=== PATIENT | female | born 1955 | race Caucasian/White ===

== ENCOUNTER 2018-09-12 05:50 | Outpatient (CLI) | payer BC ==
[~2018-09-12] VITALS: Ht 160 cm; Wt 67.6 kg
[~2018-09-12 05:50] MED LIST: BPR75T PO; BUPR150T14 PO; FLUO10CA19 PO; FLUO20CA25 PO; HYDR1TAB8 OP
[2018-09-12] MEDS ORDERED: DOXA4TAB2 PO (09:43)
[2018-09-12] MEDS ORDERED: MELO15TA14 PO (09:43)
[2018-09-12] MEDS ORDERED: FLUO40CA PO (09:43)
[2018-09-13] MEDS ORDERED: HYOS0.1283 SL (11:19)
== END 2018-09-12 09:45 | disposition home or self-care (01) ==
LOC: PREOP 05:50
PROVIDERS: ATTEND Internal Medicine
DX: Z01.818 Encounter for other preprocedural examination (principal)

== ENCOUNTER 2018-09-13 07:40 | Day surgery (SDC) | payer BC, OTHER ==
--- NOTE | 2018-09-11 19:17 | HISTORY AND PHYSICAL ---
DATE OF SERVICE: COLONOSCOPY HISTORY AND PHYSICAL HISTORY OF PRESENT ILLNESS: The patient is a 62-year-old white female who I initially called in the office on 07/25/2018, reporting lower quadrant abdominal pain compatible with previous episodes of diverticulitis. She was running fever, but denying any bowel habit change. She was out of town, so she was given a week's course of cephalexin 500 mg q.i.d. and reports had resolution. She has had 2 other episodes of bilateral lower quadrant discomfort worse in the left side without fever that lasted for several days for which she took Tylenol and noticed stools were a little bit looser, but without overt diarrhea, melena or bright red blood per rectum. She last underwent colonoscopy a little over 5 years ago in 07/2013, at which time she was noted to have moderate diverticular disease without evidence for acute diverticulitis. She had 2 hyperplastic polyps removed, one from the rectosigmoid junction and the other one from the distal sigmoid colon with no evidence for adenomas. She is not aware of any family history for colon cancer. Her weight has been stable, but she does feel fatigued when she has the abdominal pain. For this reason, she is being set up for diagnostic colonoscopy. PAST MEDICAL HISTORY: Significant for depression and hypertension with no known history of vascular disease. PHYSICAL EXAMINATION: GENERAL: Reveals a pleasant white female little anxious, but did not appear to be in acute distress. VITAL SIGNS: Weight is 149.2 pounds, stable. Blood pressure is 134/80, heart rate 76 and regular. HEENT: Unremarkable. Sclerae nonicteric. She has a Mallampati class 3 oropharyngeal configuration. CHEST: Clear to auscultation. CARDIOVASCULAR: Revealed a regular rate and rhythm without murmur, S3 or S4. ABDOMEN: Revealed some mild left lower quadrant discomfort to palpation without rebound or guarding. No mass or organomegaly was noted. No distention is appreciated. No bruits are noted and bowel sounds are present. EXTREMITIES: Reveal no cyanosis, clubbing or edema. ASSESSMENT AND PLAN: For further evaluation of recurrent abdominal pain and known diverticulosis, the patient is being set up for surveillance colonoscopy. She did have an irritable bowel type response to her procedure and remember discomfort with that, so this will be done under anesthesia. The patient was seen in the office on 09/11/2018 and is being set up for 09/13/2018. Prep instructions with Ojeda-prep kit were given and questions were answered. With review of her medical record and dictation, a little over 25 minutes care time has been spent. Job ID: [id number] DocumentID: [id number] Dictated Date: 09/11/2018 18:26:50 Parts Representative Date: 09/11/2018 19:16:44 Dictated By: ORA ROGERS MD
[~2018-09-13] VITALS: Ht 160 cm; Wt 67.6 kg
[~2018-09-13 07:40] MED LIST changes: +DOXA4TAB2 PO; +FLUO40CA PO; +MELO15TA14 PO
[2018-09-13] MEDS ORDERED: LACTATED RINGERS 1,000 ML IV STA (07:57)
[2018-09-13] MEDS ORDERED: LACTATED RINGERS 1,000 ML IV ONE (08:00)
[2018-09-13] MEDS ORDERED: LIDOCAINE JELLY 2% 6 ML SYRINGE MM PRN (08:00)
[2018-09-13 08:15] VITALS: BP 140/82
[2018-09-13] MEDS ORDERED: LIDOCAINE JELLY 2% 6 ML SYRINGE ONE (08:29)
[2018-09-13] MEDS ORDERED: PROPOFOL INJECTION 50 ML IV ONE (08:32)
[2018-09-13] MEDS ORDERED: MIDAZOLAM 2 MG/2 ML (VERSED) VIAL ONE (08:32)
[2018-09-13] MEDS ORDERED: proPOfol 200 MG/20 ML (DIPRIVAN) VIAL IV ONE (09:09)
--- NOTE | 2018-09-13 09:25 | Pre-Op Note & Conscious Sedat ---
Pre-Operative Progress Note H&P Reviewed The H&P was reviewed, patient examined and no changes noted. Date H&P Reviewed: September 13, 2018 Time H&P Reviewed: 07:55 Conscious Sedation Pre-Proced ASA Score 2 For ASA 3 and 4: Consider anesthesia and medical clearance. Also, for patients with a history of failed moderate sedation consider anesthesia. Airway Lungs Heart ASA score ASA 1: a normal healthy patient ASA 2: a patient with a mild systemic disease (mid diabetes, controlled hypertension, obesity ASA 3: a patient with a severe systemic disease that limits activity (angina, COPD, prior Myocardial infarction) ASA 4: a patient with an incapacitating disease that is a constant threat to life (CHF, renal failure) ASA 5: a moribund patient not expected to survive 24 hrs. (ruptured aneurysm) ASA 6: a declared brain- patient whose organs are being harvested. For emergent operations, add the letter E after the classification Mallampati Classification Grade 2 Sedation Plan Analgesia, Amnesia, Plan communicated to team members, Discussed options with patient/fam, Discussed risks with patient/fam The patient is an appropriate candidate to undergo the planned procedure, sedation, and anesthesia. The patient immediately re-assessed prior to indication. ORA ROGERS MD September 13, 2018 09:25
[2018-09-13 09:40] VITALS: BP 144/81
[2018-09-13 10:15] VITALS: BP 143/92
[2018-09-13 10:25] VITALS: BP 143/92
--- NOTE | 2018-09-13 11:04 | Anesthesia-General Post-Op ---
MAC Patient Condition Mental Status/LOC: Same as Preop Cardiovascular: Satisfactory Nausea/Vomiting: Absent Respiratory: Satisfactory Pain: Controlled Complications: Absent Post Op Complications Complications None Follow Up Care/Instructions Patient Instructions None needed. Anesthesiology Discharge Order Discharge Order Patient is doing well, no complaints, stable vital signs, no apparent adverse anesthesia problems. No complications reported per nursing. HODAN CAAL CRNA September 13, 2018 11:04
[2018-09-13] MEDS ORDERED: HYOS0.1283 SL (11:19)
--- NOTE | 2018-09-13 14:17 | OPERATIVE REPORT ---
DATE OF SERVICE: 09/13/2018 COLONOSCOPY SUMMARY PRIMARY CARE PHYSICIAN: Ora Rogers MD INDICATION FOR THE PROCEDURE: Bilateral lower quadrant abdominal pain, past history of colon polyps. PROCEDURE IN DETAIL: The patient was placed in the left lateral decubitus position. Prior to undergoing colonoscopy, digital rectal evaluation was performed. Anal sphincter tone was normal. There were no abnormalities on digital inspection of the anal canal or distal rectal vault. The colonoscope was then inserted into the rectum and under direct visualization advanced to the cecum. The cecum was identified by identification of the ileocecal valve and cecal strap. Photographic documentation was obtained. Careful inspection was made as the colonoscope was withdrawn. Because of an irritable bowel type response with abdominal pain, procedure was done under Diprivan anesthesia. FINDINGS: There is no evidence for internal or external hemorrhoids and the rectum was unremarkable. There is a significant haustral hypertrophy involving the sigmoid colon with moderate number of small to medium size diverticulum without evidence for acute inflammatory change to suggest diverticulitis. Present in the mid sigmoid colon was a diminutive 3 to 4 mm sessile polyp with hyperplastic features. It was biopsied and ablated and submitted for histopathology with minimal blood loss. A similar polyp slightly smaller 2 to 3 mm was noted in the distal transverse colon and was biopsied and ablated with no blood loss. The splenic flexure, remainder of the transverse colon, hepatic flexure, ascending colon and cecum were unremarkable. ASSESSMENT: 1. Moderate diverticular disease confined to the sigmoid colon was present with significant haustral hypertrophy, but without endoscopic findings to suggest acute diverticulitis. 2. Two diminutive polyps removed, one from the sigmoid colon, one from the distal transverse colon via hot forceps as noted above. The patient was reassured by today's findings. We will have her try Levsin SL the next time she has abdominal pain and if she is having associated fever, she is to call for evaluation for consideration for antibiotics. Job ID: [id number] DocumentID: [id number] Dictated Date: 09/13/2018 09:43:[address] Date: 09/13/2018 14:15:17 Dictated By: ORA ROGERS MD [facility]
== END 2018-09-13 10:25 | disposition home or self-care (01) ==
LOC: ENDO 07:40
PROVIDERS: ATTEND Internal Medicine
DX: K63.5 Polyp of colon (principal); K57.30 Diverticulosis of large intestine without perforation or abscess without bleeding; I10 Essential (primary) hypertension; F32.9 Major depressive disorder, single episode, unspecified

== ENCOUNTER 2018-12-24 09:50 | Emergency (ER) | payer BC ==
[~2018-12-24 09:50] MED LIST changes: +HYOS0.1283 SL
--- NOTE | 2018-12-24 10:35 | ED General ---
General Chief Complaint: General Problems/Pain Stated Complaint: FEVER Nursing Triage Note: TO ED PER W/C REPORTS HAS NOT FELT WELL SINCE YESERDAY RICARDO.C/O FEVER,BODY ACHES VOMITED X1 AT 4AM TODAY. Nursing Sepsis Screen: No Definite Risk Source of Information: Patient Exam Limitations: No Limitations History of Present Illness Date Seen by Provider: Dec 24, 2018 Time Seen by Provider: 10:33 Initial Comments To ER with feeling poorly since yesterday when she got home from work. When she went to work in the morning she felt fine. Yesterday evening she developed fever up to a maximum of 102, generalized body aches, vomited once this morning, has had diarrhea and some suprapubic abdominal pain. She suspects she may have a diverticulitis flareup. Timing/Duration: 12-24 Hours Severity: Moderate Associated Systoms: Fever/Chills, Nausea/Vomiting, Weakness Allergies and Home Medications Allergies Coded Allergies: No Known Drug Allergies (Unverified , 12/26/11) Home Medications Amoxicillin/Potassium Clav 1 Each Tablet, 1 EACH PO BID Prescribed by: GUILLAUME MURPHY on 12/24/18 1217 Baloxavir Marboxil 40 Mg Tablet, 40 MG PO ONCE Prescribed by: GUILLAUME MURPHY on 12/24/18 1052 Bupropion HCl 150 Mg Tablet.er, 150 MG PO TID, (Reported) Doxazosin Mesylate 4 Mg Tablet, 4 MG PO DAILY, (Reported) Fluoxetine HCl 40 Mg Capsule, 40 MG PO DAILY, (Reported) Hyoscyamine Sulfate 0.125 Mg Tab.subl, 0.125 MG SL Q4H Prescribed by: ORA ROGERS on 09/13/18 1119 Meloxicam 15 Mg Tablet, 15 MG PO DAILY, (Reported) Ondansetron 8 Mg Tab.rapdis, 8 MG PO Q6H PRN for NAUSEA/VOMITING Prescribed by: GUILLAUME MURPHY on 12/24/18 1217 Patient Home Medication List Home Medication List Reviewed: Yes Review of Systems Review of Systems Constitutional: see HPI, chills, fever, malaise, weakness EENTM: see HPI Respiratory: no symptoms reported Cardiovascular: no symptoms reported Genitourinary: no symptoms reported Musculoskeletal: see HPI Skin: no symptoms reported Psychiatric/Neurological: No Symptoms Reported Hematologic/Lymphatic: No Symptoms Reported Past Ofxdhyr-Ugiqlu-Brbicy Hx Patient Social History Alcohol Use: Denies Use Recreational Drug Use: No Smoking Status: Never a Smoker Type Used: Cigarettes Former Smoker, Quit: Apr 14, 2017 Recent Foreign Travel: No Contact w/Someone Who Travel: No Recent Infectious Disease Expo: No Recent Hopitalizations: No Immunizations Up To Date Date of Pneumonia Vaccine: Mar 24, 2009 Date of Influenza Vaccine: Jan 28, 2015 Seasonal Allergies Seasonal Allergies: No Past Medical History Surgeries: Yes (bilat hip replacement, plate left foot, left wrist) Orthopedic Respiratory: No Cardiac: Yes Hypertension Neurological: No Reproductive Disorders: No Genitourinary: No Gastrointestinal: No Polyps Musculoskeletal: Yes Osteoporosis Endocrine: No HEENT: No Cancer: No Psychosocial: Yes Anxiety, Depression Integumentary: No Blood Disorders: No Family Medical History Patient reports no known family medical history. No Pertinent Family Hx Physical Exam Vital Signs Vital Signs - First Documented 12/24/18 09:52 Temp 37.0 Pulse 60 Resp 18 B/P (MAP) 100/62 Pulse Ox 78 Capillary Refill : Less Than 3 Seconds Height, Weight, BMI Height: 5'3.00" Weight: 149lbs. 0.0oz. [id number]; 26.4 BMI Method:Estimated General Appearance: No Apparent Distress, WD/WN Eyes: Bilateral Eye Normal Inspection, Bilateral Eye PERRL, Bilateral Eye EOMI HEENT: PERRL/EOMI Neck: Full Range of Motion, Normal Inspection Respiratory: No Accessory Muscle Use, No Respiratory Distress Cardiovascular: Regular Rate, Rhythm, No Murmur Gastrointestinal: Normal Bowel Sounds, Soft, Tenderness (suprapubic) Extremity: Normal Capillary Refill, Normal Inspection Neurologic/Psychiatric: Alert, Oriented x3, Other (flat affect) Skin: Normal Color, Warm/Dry Progress/Results/Core Measures Suspected Sepsis Recent Fever Within 48 Hours: No Infection Criteria Present: Suspected New Infection New/Unexplained Altered Menta: No Sepsis Screen: No Definite Risk SIRS Temperature: Pulse: 60 Respiratory Rate: 18 Laboratory Tests 12/24/18 10:30: White Blood Count 10.3 Blood Pressure 100 /62 Mean: 75 Laboratory Tests 12/24/18 10:30: Creatinine 0.77, Platelet Count 242, Total Bilirubin 0.8 Results/Orders Lab Results Laboratory Tests Test 12/24/18 10:30 Range/Units White Blood Count 10.3 4.3-11.0 10^3/uL Red Blood Count 4.17 L 4.35-5.85 10^6/uL Hemoglobin 13.0 11.5-16.0 G/DL Hematocrit 38 35-52 % Mean Corpuscular Volume 92 80-99 FL Mean Corpuscular Hemoglobin 31 25-34 PG Mean Corpuscular Hemoglobin Concent 34 32-36 G/DL Red Cell Distribution Width 12.6 10.0-14.5 % Platelet Count 242 130-400 10^3/uL Mean Platelet Volume 10.8 H 7.4-10.4 FL Neutrophils (%) (Auto) 79 H 42-75 % Lymphocytes (%) (Auto) 11 L 12-44 % Monocytes (%) (Auto) 9 0-12 % Eosinophils (%) (Auto) 1 0-10 % Basophils (%) (Auto) 0 0-10 % Neutrophils # (Auto) 8.1 H 1.8-7.8 X 10^3 Lymphocytes # (Auto) 1.1 1.0-4.0 X 10^3 Monocytes # (Auto) 1.0 0.0-1.0 X 10^3 Eosinophils # (Auto) 0.1 0.0-0.3 10^3/uL Basophils # (Auto) 0.0 0.0-0.1 10^3/uL Sodium Level 138 135-145 MMOL/L Potassium Level 4.0 3.6-5.0 MMOL/L Chloride Level 105 98-107 MMOL/L Carbon Dioxide Level 24 21-32 MMOL/L Anion Gap 9 5-14 MMOL/L Blood Urea Nitrogen 12 7-18 MG/DL Creatinine 0.77 0.60-1.30 MG/DL Estimat Glomerular Filtration Rate > 60 BUN/Creatinine Ratio 16 Glucose Level 103 70-105 MG/DL Calcium Level 9.5 8.5-10.1 MG/DL Corrected Calcium 9.6 8.5-10.1 MG/DL Total Bilirubin 0.8 0.1-1.0 MG/DL Aspartate Amino Transf (AST/SGOT) 16 5-34 U/L Alanine Aminotransferase (ALT/SGPT) 14 0-55 U/L Alkaline Phosphatase 69 40-136 U/L Total Protein 6.4 6.4-8.2 GM/DL Albumin 3.9 3.2-4.5 GM/DL Micro Results Microbiology 9/10/19 Influenza Types A,B Antigen (KATRINA) - Final, Complete My Orders Orders - GUILLAUME MURPHY [employer] SERVICE WRITER Ct Abdomen/Pelvis W (12/24/18 10:32) Ketorolac Injection (Toradol Injection) (12/24/18 10:45) Ns Iv 1000 Ml (Sodium Chloride 0.9%) (12/24/18 10:45) Iohexol Injection (Omnipaque 350 Mg/Ml 1 (12/24/18 11:15) Received Contrast (Hold Metformin- Contr (12/24/18 11:15) Ns (Ivpb) (Sodium Chloride 0.9% Ivpb Bag (12/24/18 11:15) Medications Given in ED Current Medications Medications Dose Ordered Sig/Michael Route Start Time Stop Time Status Last Admin Dose Admin Iohexol 100 ml ONCE ONCE IV 12/24/18 11:15 12/24/18 11:16 DC 12/24/18 11:17 83 ML Ketorolac Tromethamine 15 mg ONCE ONCE IVP 12/24/18 10:45 12/24/18 10:46 DC 12/24/18 10:55 15 MG Sodium Chloride 100 ml ONCE ONCE IV 12/24/18 11:15 12/24/18 11:16 DC 12/24/18 11:17 80 ML Vital Signs/I&O 12/24/18 09:52 Temp 37.0 Pulse 60 Resp 18 B/P (MAP) 100/62 Pulse Ox 78 Capillary Refill : Less Than 3 Seconds Blood Pressure Mean: 75 Departure Impression Primary Impression: Influenza B Additional Impression: Sigmoid diverticulitis Disposition: 01 HOME, SELF-CARE Condition: Stable Departure-Patient Inst. Decision time for Depature: 10:51 Referrals: ORA ROGERS MD (PCP/Family) Primary Care Physician Patient Instructions: Flu, Adult (DC) Add. Discharge Instructions: Tylenol and ibuprofen for body aches and fevers. Drink plenty of fluids. He should remain home from work for the rest of the week. Follow-up with Dr. Rogers next week. All discharge instructions reviewed with patient and/or family. Voiced understanding. Scripts Ondansetron (Ondansetron Odt) 8 Mg Tab.rapdis 8 MG PO Q6H PRN for NAUSEA/VOMITING, #10 TAB Prov: GUILLAUME MURPHY APRN 12/24/18 Amoxicillin/Potassium Clav (Augmentin 985-125 Tablet) 1 Each Tablet 1 EACH PO BID, #14 TAB 0 Refills Prov: GUILLAUME MURPHY APRN 12/24/18 Baloxavir Marboxil (Xofluza) 40 Mg Tablet 40 MG PO ONCE, #1 TAB Prov: GUILLAUME MURPHY APRN 12/24/18 Work/School Note: Work Release Form Date Seen in the Emergency Department: Dec 24, 2018 Return to Work: Dec 30, 2018 Copy Copies To 1: ORA ROGERS MD, PETER J APRN Dec 24, 2018 10:35
[2018-12-24 10:44] LABS: BASOPHILS % (AUTO) 0 % (0-10); EOSINOPHILS # (AUTO) 0.1 10^3/uL (0.0-0.3); EOSINOPHILS % (AUTO) 1 % (0-10); HEMATOCRIT 38 % (35-52); LYMPHOCYTES # (AUTO) 1.1 X 10^3 (1.0-4.0); LYMPHOCYTES % (AUTO) 11 % (12-44); MEAN CORPUSCULAR HEMOGLOBIN 31 PG (25-34); MEAN CORPUSCULAR HGB CONC 34 G/DL (32-36); MEAN CORPUSCULAR VOLUME 92 FL (80-99); MEAN PLATELET VOLUME 10.8 FL (7.4-10.4); MONOCYTES % (AUTO) 9 % (0-12); NEUTROPHILS # (AUTO) 8.1 X 10^3 (1.8-7.8); NEUTROPHILS % (AUTO) 79 % (42-75); PLATELET COUNT 242 10^3/uL (130-400); RED CELL DISTRIBUTION WIDTH 12.6 % (10.0-14.5); WHITE BLOOD COUNT 10.3 10^3/uL (4.3-11.0)
[2018-12-24] MEDS ORDERED: NS IV 1000 ML 1,000 ML IV SCH (10:45)
[2018-12-24] MEDS ORDERED: KETOROLAC 30 MG/ML VIAL IVP ONE (10:45)
[2018-12-24] MEDS ORDERED: BALO40TA PO (10:52)
[2018-12-24 11:02] LABS: ALANINE AMINOTRANSFERASE 14 U/L (0-55); ALBUMIN 3.9 GM/DL (3.2-4.5); ALKALINE PHOSPHATASE 69 U/L (40-136); BILIRUBIN,TOTAL 0.8 MG/DL (0.1-1.0); BUN/CREATININE RATIO 16; CALCIUM 9.5 MG/DL (8.5-10.1); CARBON DIOXIDE 24 MMOL/L (21-32); CHLORIDE 105 MMOL/L (98-107); CREATININE SERUM 0.77 MG/DL (0.60-1.30); GFR ESTIMATED > 60; GLUCOSE 103 MG/DL (70-105); SODIUM 138 MMOL/L (135-145); TOTAL PROTEIN 6.4 GM/DL (6.4-8.2)
[2018-12-24] MEDS ORDERED: IOHEXOL 350 MG/ML 100 ML (OMNIPAQUE 350) VIAL IV ONE (11:15)
[2018-12-24] MEDS ORDERED: NS 100 ML (IVPB) BAG IV ONE (11:15)
[2018-12-24] MEDS ORDERED: HOLD METFORMIN - RECEIVED CONTRAST 20 ML VIAL IV SCH (11:15)
--- NOTE | 2018-12-24 12:13 | Diagnostic Imaging Report ---
PROCEDURE: CT abdomen and pelvis with contrast. TECHNIQUE: Multiple contiguous axial images were obtained through the abdomen and pelvis after administration of intravenous contrast. Auto Exposure Controls were utilized during the CT exam to meet ALARA standards for radiation dose reduction. DATE: December 24, 2018. COMPARISON: None. INDICATION: 63-year-old female, lower pelvic pain. Nausea, vomiting, and diarrhea. FINDINGS: There is mild dependent atelectasis in the lung bases. The heart is not enlarged. There is no pericardial effusion. The liver is unremarkable in size and contour. There is a low-attenuation lesion in the left lobe of the liver on axial image 10 measuring 10 mm in size with internal attenuation of 12 Hounsfield units. This highly likely relates to a benign hepatic cyst. There is no additional identified liver lesion. The main, right, and left portal veins are patent. The gallbladder is unremarkable. There is no intrahepatic or extrahepatic bile duct dilation. There appears to be pancreas divisum. The main pancreatic duct is not grossly dilated. There is no evidence of acute or chronic pancreatitis. Additional evaluation of the pancreatic parenchyma is unremarkable. The spleen is normal in size. The adrenal glands are unremarkable. There is a 5 mm low-attenuation lesion on delayed axial image 32 which is too small to characterize. The urinary collecting systems are not distended. There is no identified renal or ureteral stone. The urinary bladder is without obvious abnormality. There are significant limitations for evaluation of the pelvis given the prominent streak artifact relating to bilateral hip prostheses. There is prominent abnormal wall thickening of the mid sigmoid colon which is in an area of diverticular disease, seen best on axial image 62 and adjacent sequential images. There is no identified immediately adjacent pericolonic lymph node. There are fluid-filled loops of distal small bowel in the right lower quadrant which are not grossly distended. There is some distortion of bowel contours in the lower abdomen just to the right of midline as seen on axial image 57 and adjacent sequential images. There are no abnormally dilated segments of small bowel or otherwise abnormally distended bowel segments. There is no free intraperitoneal air. There is no drainable fluid collection. There is no sizable volume of free pelvic fluid. There are atherosclerotic calcifications. There is a circumaortic left renal vein. There is no identified abnormally enlarged lymph node in the abdomen or pelvis which specifically meets CT size criteria for adenopathy. There are multilevel degenerative changes of the spine. There is a concavity of the superior endplate of L2 with approximately 30% vertebral body height loss. There is no visualized fracture line. This is technically age indeterminate without comparison imaging. IMPRESSION: 1. Prominent abnormal wall thickening at the level of the mid sigmoid colon in an area of diverticular disease without immediately adjacent pericolonic lymph node. In the appropriate clinical setting, this most likely reflects acute diverticulitis. Colonic malignancy is the differential diagnostic consideration. 2. Distortion of small bowel contours in the lower abdomen just to the right of midline which could reflect adhesions. No findings to specifically suggest bowel obstruction. 3. Compression deformity of L2 which is age-indeterminate without comparison imaging. Dictated by: Dictated on workstation # [id number]
[2018-12-24] MEDS ORDERED: AMOX-358 PO (12:17)
[2018-12-24] MEDS ORDERED: ONDA8TAB13 PO (12:17)
[2018-12-24 12:31] LABS: BILIRUBIN,URINE NEGATIVE (NEGATIVE); CLARITY,URINE CLEAR; COLOR,URINE YELLOW; GLUCOSE, URINE (UA) NEGATIVE (NEGATIVE); KETONES,URINE NEGATIVE (NEGATIVE); LEUKOCYTE ESTERASE ,URINE NEGATIVE (NEGATIVE); NITRITE,URINE NEGATIVE (NEGATIVE); PH,URINE 7 (5-9); PROTEIN,URINE NEGATIVE (NEGATIVE); UROBILINOGEN,URINE NORMAL (NORMAL)
[2018-12-24 12:39] VITALS: BP 130/59
[2018-12-24 12:42] LABS: BACTERIA,URINE NEGATIVE /HPF; SQUAMOUS EPITHELIAL CELL,UR RARE /HPF
== END 2018-12-24 12:43 | disposition home or self-care (01) ==
LOC: EDUNIT# 09:50 → ER 09:51
DX: J10.1 Influenza due to other identified influenza virus with other respiratory manifestations (principal); K57.32 Diverticulitis of large intestine without perforation or abscess without bleeding; I10 Essential (primary) hypertension; F41.9 Anxiety disorder, unspecified; F32.9 Major depressive disorder, single episode, unspecified; Z87.891 Personal history of nicotine dependence; Z96.643 Presence of artificial hip joint, bilateral
CPT/HCPCS: 36415; 74177; 80053; 81000; 85025; 87804

== ENCOUNTER 2021-02-18 17:25 | Emergency (ER) | payer OTHER ==
[~2021-02-18] VITALS: Ht 157.5 cm; Wt 68.0 kg
[~2021-02-18 17:25] MED LIST changes: +AMOX-358 PO; +BALO40TA PO; +FLUO20CA46 PO; +ONDA8TAB13 PO
--- NOTE | 2021-02-18 17:42 | ED General ---
General Stated Complaint: FALL/DIZZINESS Source of Information: Patient, EMS Exam Limitations: No Limitations History of Present Illness Date Seen by Provider: Feb 18, 2021 Time Seen by Provider: 17:40 Initial Comments To ER by EMS from home with reports of dizziness and head injury. [facility] had a flareup of dizziness which caused her to fall. She is not sure if she hit her head or not but she does have a headache. She has Mnire's disease and is on hydrochlorothiazide, Valium twice daily, meclizine as needed. Had been feeling well up until this happened. Timing/Duration: 1/2 Hour Severity: Moderate, Severe Associated Systoms: Headaches Allergies and Home Medications Allergies Coded Allergies: No Known Drug Allergies (Unverified , 12/26/11) Patient Home Medication List Home Medication List Reviewed: Yes Amoxicillin/Potassium Clav (Augmentin 875-125 Tablet) 1 Each Tablet, 1 EACH PO BID Prescribed by: GUILLAUME MURPHY on 12/24/18 1217 Baloxavir Marboxil (Xofluza) 40 Mg Tablet, 40 MG PO ONCE Prescribed by: GUILLAUME MURPHY on 12/24/18 1052 Bupropion HCl (Bupropion HCl Sr) 150 Mg Tablet.er, 150 MG PO TID, (Reported) Entered as Reported by: DARCY DOMÍNGUEZ on 03/23/15 1007 Doxazosin Mesylate (Doxazosin Mesylate) 4 Mg Tablet, 4 MG PO DAILY, (Reported) Entered as Reported by: DANAY ALCALA on 09/12/18 0943 Fluoxetine HCl (Fluoxetine HCl) 40 Mg Capsule, 40 MG PO DAILY, (Reported) Entered as Reported by: DANAY ALCALA on 09/12/18 0943 Hyoscyamine Sulfate (Levsin-Sl) 0.125 Mg Tab.subl, 0.125 MG SL Q4H Prescribed by: ORA ROGERS on 09/13/18 1119 Meloxicam (Mobic) 15 Mg Tablet, 15 MG PO DAILY, (Reported) Entered as Reported by: DANAY ALCLAA on 09/12/18 0943 Ondansetron (Ondansetron Odt) 8 Mg Tab.rapdis, 8 MG PO Q6H PRN for NAUSEA/VOMITING Prescribed by: GUILLAUME MURPHY on 12/24/18 1217 Review of Systems Review of Systems Constitutional: see HPI, dizziness EENTM: see HPI Respiratory: no symptoms reported Cardiovascular: no symptoms reported Genitourinary: no symptoms reported Musculoskeletal: no symptoms reported Skin: no symptoms reported Psychiatric/Neurological: No Symptoms Reported Hematologic/Lymphatic: No Symptoms Reported Past Fvidcei-Ucilvq-Fapnth Hx Seasonal Allergies Seasonal Allergies: No Past Medical History Surgeries: Yes (bilat hip replacement, plate left foot, left wrist) Orthopedic Respiratory: No Cardiac: Yes Hypertension Neurological: No Reproductive Disorders: No Genitourinary: No Gastrointestinal: No Polyps Musculoskeletal: Yes Osteoporosis Endocrine: No HEENT: No Cancer: No Psychosocial: Yes Anxiety, Depression Integumentary: No Blood Disorders: No Family Medical History Patient reports no known family medical history. No Pertinent Family Hx Physical Exam Vital Signs Vital Signs - First Documented 02/18/21 17:25 Temp 36.0 Pulse 65 Resp 18 B/P (MAP) 137/80 (99) Pulse Ox 97 O2 Delivery Room Air Capillary Refill : Height, Weight, BMI Height: 5'3.00" Weight: 149lbs. 0.0oz. 67.088285qg; 26.4 BMI Method:Estimated General Appearance: No Apparent Distress, WD/WN Eyes: Bilateral Eye Normal Inspection, Bilateral Eye PERRL, Bilateral Eye EOMI HEENT: PERRL/EOMI, TMs Normal, Other (Left tympanic membrane obscured by cerumen, keeps her head turned to the right because this is the only position of comfort for dizziness and does not allow examination of the right tympanic membrane.) Neck: Full Range of Motion, Normal Inspection Respiratory: No Accessory Muscle Use, No Respiratory Distress Cardiovascular: Regular Rate, Rhythm, Normal Peripheral Pulses Gastrointestinal: Non Tender, Soft Extremity: Normal Capillary Refill, Normal Inspection Neurologic/Psychiatric: Alert, Oriented x3 Skin: Normal Color, Warm/Dry Progress/Results/Core Measures Suspected Sepsis SIRS Temperature: Pulse: Respiratory Rate: Laboratory Tests 02/18/21 17:30: White Blood Count 6.0 Blood Pressure / Mean: Laboratory Tests 02/18/21 17:30: Creatinine 0.95, INR Comment 1.0, Platelet Count 311 Results/Orders Lab Results Laboratory Tests Test 02/18/21 17:30 02/18/21 18:17 Range/Units White Blood Count 6.0 4.3-11.0 10^3/uL Red Blood Count 4.05 3.80-5.11 10^6/uL Hemoglobin 12.2 11.5-16.0 g/dL Hematocrit 36 35-52 % Mean Corpuscular Volume 90 80-99 fL Mean Corpuscular Hemoglobin 30 25-34 pg Mean Corpuscular Hemoglobin Concent 34 32-36 g/dL Red Cell Distribution Width 13.2 10.0-14.5 % Platelet Count 311 130-400 10^3/uL Mean Platelet Volume 9.9 9.0-12.2 fL Immature Granulocyte % (Auto) 0 % Neutrophils (%) (Auto) 52 42-75 % Lymphocytes (%) (Auto) 32 12-44 % Monocytes (%) (Auto) 11 0-12 % Eosinophils (%) (Auto) 4 0-10 % Basophils (%) (Auto) 1 0-10 % Neutrophils # (Auto) 3.1 1.8-7.8 10^3/uL Lymphocytes # (Auto) 1.9 1.0-4.0 10^3/uL Monocytes # (Auto) 0.7 0.0-1.0 10^3/uL Eosinophils # (Auto) 0.2 0.0-0.3 10^3/uL Basophils # (Auto) 0.0 0.0-0.1 10^3/uL Immature Granulocyte # (Auto) 0.0 0.0-0.1 10^3/uL Prothrombin Time 13.1 12.2-14.7 SEC INR Comment 1.0 0.8-1.4 Sodium Level 133 L 135-145 MMOL/L Potassium Level 3.3 L 3.6-5.0 MMOL/L Chloride Level 100 98-107 MMOL/L Carbon Dioxide Level 21 21-32 MMOL/L Anion Gap 12 5-14 MMOL/L Blood Urea Nitrogen 10 7-18 MG/DL Creatinine 0.95 0.60-1.30 MG/DL Estimat Glomerular Filtration Rate 59 BUN/Creatinine Ratio 11 Glucose Level 88 70-105 MG/DL Calcium Level 9.1 8.5-10.1 MG/DL Urine Color YELLOW Urine Clarity CLEAR Urine pH 6.5 5-9 Urine Specific [place] 1.010 L 1.016-1.022 Urine Protein NEGATIVE NEGATIVE Urine Glucose (UA) NEGATIVE NEGATIVE Urine Ketones NEGATIVE NEGATIVE Urine Nitrite NEGATIVE NEGATIVE Urine Bilirubin NEGATIVE NEGATIVE Urine Urobilinogen 0.2 < = 1.0 MG/DL Urine Leukocyte Esterase NEGATIVE NEGATIVE Urine RBC (Auto) NEGATIVE NEGATIVE Urine RBC NONE /HPF Urine WBC NONE /HPF Urine Squamous Epithelial Cells RARE /HPF Urine Crystals NONE /LPF Urine Bacteria NEGATIVE /HPF Urine Casts NONE /LPF Urine Mucus NEGATIVE /LPF Urine Culture Indicated NO My Orders Orders - GUILLAUME MURPYH APRN Ct Head/Cervical Spine Wo (02/18/21 17:39) Cbc With Automated Diff (02/18/21 17:39) Basic Metabolic Panel (02/18/21 17:39) Protime With Inr (02/18/21 17:39) Ed Iv/Invasive Line Start (02/18/21 17:39) Meclizine Tablet (Antivert Tablet) (02/18/21 17:45) Ua Culture If Indicated (02/18/21 18:03) Medications Given in ED Current Medications Medications Dose Ordered Sig/Michael Route Start Time Stop Time Status Last Admin Dose Admin Meclizine HCl 50 mg ONCE ONCE PO 02/18/21 17:45 02/18/21 17:46 DC 02/18/21 17:44 50 MG Vital Signs/I&O 02/18/21 17:25 Temp 36.0 Pulse 65 Resp 18 B/P (MAP) 137/80 (99) Pulse Ox 97 O2 Delivery Room Air Capillary Refill : Departure Communication (Admissions) Family Conversation 1850-states she feels "like a new person". Ready to go home without dizziness. NAME: RACHEL RESENDEZ [facility] REC#: [id number] PT STATUS: REG ER : 1955 PHYSICIAN: GUILLAUME MURPHY APRN ADMIT DATE: 02/18/21/ER Draft Date of Exam:02/18/21 CT HEAD/CERVICAL SPINE WO PROCEDURE: CT head and CT cervical spine without contrast. TECHNIQUE: Multiple contiguous axial images were obtained through the brain and cervical spine without the use of intravenous contrast. Sagittal and coronal reformations through the cervical spine were then performed. Auto Exposure Controls were utilized during the CT exam to meet ALARA standards for radiation dose reduction. INDICATION: Dizziness. COMPARISON: MRI brain without contrast from 09/20/2020. CT head and cervical spine without contrast from 12/26/2011. FINDINGS: CT HEAD: No CT evidence of an acute territorial infarction. No intracranial hemorrhage, mass effect, hydrocephalus or extra-axial fluid collections. Visualized paranasal sinuses and mastoids are clear. No acute osseous findings. CT CERVICAL SPINE: Normal alignment. Mild superior endplate height loss of T2 of approximately 10% appears to be chronic but is new since 2011 and technically age indeterminate. No other fractures identified. Gkwymjhz-hc-xithiylf degenerative endplate changes are greatest at C4-C7. No high-grade spinal canal stenosis is evident on soft tissue windows. Mild atherosclerotic calcifications in the carotid bifurcations. The lung apices are unremarkable. IMPRESSION: 1. No acute intracranial or cervical spine CT findings. 2. Mild superior endplate height loss of T2 is likely chronic but age indeterminate and new since 2011. This could be further evaluated with MRI if clinically warranted. Dictated on workstation # [id number] Dict: 02/18/21 180 Trans: 02/18/211815 AS6 [id number] Interpreted by: JADIEL CUMMINGS MD Electronically signed by: Impression Primary Impression: Dizziness Disposition: 01 HOME, SELF-CARE Condition: Stable Departure-Patient Inst. Decision time for Depature: 18:27 Referrals: ORA ROGERS MD (PCP/Family) Primary Care Physician Patient Instructions: Vertigo (a Type of Dizziness) (DC) Copy Copies To 1: ORA ROGERS MD, PETER J APRN Feb 18, 2021 17:42
[2021-02-18 17:44] LABS: BASOPHILS % (AUTO) 1 % (0-10); EOSINOPHILS # (AUTO) 0.2 10^3/uL (0.0-0.3); EOSINOPHILS % (AUTO) 4 % (0-10); HEMATOCRIT 36 % (35-52); HEMOGLOBIN 12.2 g/dL (11.5-16.0); LYMPHOCYTES # (AUTO) 1.9 10^3/uL (1.0-4.0); LYMPHOCYTES % (AUTO) 32 % (12-44); MEAN CORPUSCULAR HEMOGLOBIN 30 pg (25-34); MEAN CORPUSCULAR HGB CONC 34 g/dL (32-36); MEAN CORPUSCULAR VOLUME 90 fL (80-99); MEAN PLATELET VOLUME 9.9 fL (9.0-12.2); MONOCYTES # (AUTO) 0.7 10^3/uL (0.0-1.0); MONOCYTES % (AUTO) 11 % (0-12); NEUTROPHILS # (AUTO) 3.1 10^3/uL (1.8-7.8); NEUTROPHILS % (AUTO) 52 % (42-75); PLATELET COUNT 311 10^3/uL (130-400)
[2021-02-18] MEDS ORDERED: MECLIZINE 25 MG (ANTIVERT) TAB PO ONE (17:45)
[2021-02-18 17:54] LABS: PROTHROMBIN TIME PATIENT 13.1 SEC (12.2-14.7)
[2021-02-18 18:01] LABS: CALCIUM 9.1 MG/DL (8.5-10.1); CREATININE SERUM 0.95 MG/DL (0.60-1.30); POTASSIUM 3.3 MMOL/L (3.6-5.0)
--- NOTE | 2021-02-18 18:17 | Diagnostic Imaging Report ---
PROCEDURE: CT head and CT cervical spine without contrast. TECHNIQUE: Multiple contiguous axial images were obtained through the brain and cervical spine without the use of intravenous contrast. Sagittal and coronal reformations through the cervical spine were then performed. Auto Exposure Controls were utilized during the CT exam to meet ALARA standards for radiation dose reduction. INDICATION: Dizziness. COMPARISON: MRI brain without contrast from 09/20/2020. CT head and cervical spine without contrast from 12/26/2011. FINDINGS: CT HEAD: No CT evidence of an acute territorial infarction. No intracranial hemorrhage, mass effect, hydrocephalus or extra-axial fluid collections. Visualized paranasal sinuses and mastoids are clear. No acute osseous findings. CT CERVICAL SPINE: Normal alignment. Mild superior endplate height loss of T2 of approximately 10% appears to be chronic but is new since 2011 and technically age indeterminate. No other fractures identified. Hruahwzj-eu-bpntwdsc degenerative endplate changes are greatest at C4-C7. No high-grade spinal canal stenosis is evident on soft tissue windows. Mild atherosclerotic calcifications in the carotid bifurcations. The lung apices are unremarkable. IMPRESSION: 1. No acute intracranial or cervical spine CT findings. 2. Mild superior endplate height loss of T2 is likely chronic but age indeterminate and new since 2011. This could be further evaluated with MRI if clinically warranted. Dictated by: Dictated on workstation # [id number]
[2021-02-18 18:22] LABS: BILIRUBIN,URINE NEGATIVE (NEGATIVE); CLARITY,URINE CLEAR; COLOR,URINE YELLOW; GLUCOSE, URINE (UA) NEGATIVE (NEGATIVE); KETONES,URINE NEGATIVE (NEGATIVE); LEUKOCYTE ESTERASE ,URINE NEGATIVE (NEGATIVE); NITRITE,URINE NEGATIVE (NEGATIVE); PH,URINE 6.5 (5-9); PROTEIN,URINE NEGATIVE (NEGATIVE)
[2021-02-18 18:28] LABS: BACTERIA,URINE NEGATIVE /HPF
[2021-02-18 18:29] LABS: SQUAMOUS EPITHELIAL CELL,UR RARE /HPF
[2021-02-18 18:57] VITALS: BP 135/88
== END 2021-02-18 18:57 | disposition home or self-care (01) ==
LOC: EDUNIT# 17:25 → ER 17:26
DX: R42 Dizziness and giddiness (principal); I10 Essential (primary) hypertension; F41.9 Anxiety disorder, unspecified; F32.9 Major depressive disorder, single episode, unspecified; Z79.899 Other long term (current) drug therapy
CPT/HCPCS: 36415; 70450; 72125; 80048; 81000; 85025; 85610

== ENCOUNTER → 2021-03-07 | Outpatient (CLI) | payer OTHER | LOC: CARD 12:29 | PROVIDERS: ATTEND Nurse Practitioner Family | DX: R55 Syncope and collapse (principal) | CPT/HCPCS: 93005 ==

== ENCOUNTER → 2021-03-07 | Outpatient (CLI) | payer OTHER ==
[~2021-03-07] MED LIST changes: -FLUO20CA46 PO; +FLUO20CA48 PO; +OMEP20TA7 PO
== END ==
LOC: CARD 11:59
DX: Z53.9 Procedure and treatment not carried out, unspecified reason (principal)

== ENCOUNTER 2021-03-23 05:36 | Outpatient (RCR) | payer OTHER ==
[~2021-03-23] VITALS: Ht 152.5 cm; Wt 65.8 kg
[~2021-03-23 05:36] MED LIST changes: -OMEP20TA7 PO
== END 2021-03-23 08:49 | disposition home or self-care (01) ==
LOC: PREOP 05:36
PROVIDERS: ATTEND Internal Medicine
DX: Z01.812 Encounter for preprocedural laboratory examination (principal); K21.9 Gastro-esophageal reflux disease without esophagitis; Z20.822 Contact with and (suspected) exposure to COVID-19
CPT/HCPCS: 87635

== ENCOUNTER 2021-03-25 08:17 | Day surgery (SDC) | payer OTHER ==
--- NOTE | 2021-03-17 07:21 | HISTORY AND PHYSICAL ---
DATE OF SERVICE: EGD HISTORY AND PHYSICAL HISTORY: The patient is a 65-year-old white female, who presented to the office reporting a fall on 03/12/2021. She was sitting in a swivel chair, was leaning to her left and on a hard surface, and fell. She struck the back of her left head. She denied any loss of consciousness and denied any syncopal issues. She had suffered [place], but she reports that this was different. She had a headache until today, but was finally feeling better today. She also reported increasing heartburn at point of the epigastrium and lower precordial region requiring increased antacid therapy. She had some omeprazole, but she was only taking on an intermittent basis. Within 1 week ago while eating solids had dysphagia and drink extra fluid force things down. She felt that it remained stuck for several minutes. She had another episode to solids yesterday as well. She denies melena or bright blood per rectum. She denies any significant change in weight over the past several months and this is confirmed by reviewing her office chart where weights have been stable this year. She has had no previous EGD evaluation or other upper GI tract studies. She does have a past smoking history with no significant alcohol consumption. She has had no lightheadedness and no subsequent syncopal event since her episode in early February. She denies chest pain, orthopnea, PND, pedal edema or dyspnea on exertion. PHYSICAL EXAMINATION: GENERAL: Reveals a white female, did not appear to be in acute distress. HEENT: Does reveal a small hematoma, left posterior parietal area, otherwise unremarkable. VITAL SIGNS: Blood pressure 140/82. CHEST: Clear. CARDIOVASCULAR: Reveals a regular rate and rhythm without murmur, S3 or S4. ABDOMEN: Soft, supple without mass, organomegaly or tenderness. EXTREMITIES: Reveal no cyanosis, clubbing or edema. ASSESSMENT AND PLAN: 1. Fall with contusion, now 5 days out feeling better. No need for further imaging studies. Previously had undergone MRI to rule out an acoustic neuroma earlier this year and also had a CT head following her syncopal event, both were unremarkable. 2. Increase in reflux sounding symptoms with dysphagia in an individual with significant past smoking history. The patient is being set up for EGD evaluation, advise regular omeprazole in the interim regardless of symptoms. We will see her back in two months. 3. Hypertension, under good control. Job ID: [id number] DocumentID: [id number] Dictated Date: 03/16/2021 15:50:43 Wax Cutter Date: 03/16/2021 16:26:06 Dictated By: ORA ROGERS MD MTDD
[~2021-03-25] VITALS: Ht 152.5 cm; Wt 65.8 kg
[2021-03-25] MEDS ORDERED: LACTATED RINGERS 1,000 ML IV STA (08:20)
[2021-03-25] MEDS ORDERED: LACTATED RINGERS 1,000 ML IV ONE (08:28)
[2021-03-25] MEDS ORDERED: LIDOCAINE JELLY 2% 6 ML SYRINGE MM PRN (08:30)
[2021-03-25] MEDS ORDERED: HURRICAINE EXT TUBE (BENZOCAINE) XX PRN (08:30)
[2021-03-25 08:48] VITALS: BP 118/90
--- NOTE | 2021-03-25 09:12 | Pre-Op Note & Conscious Sedat ---
Pre-Operative Progress Note H&P Reviewed The H&P was reviewed, patient examined and no changes noted. Date H&P Reviewed: Mar 25, 2021 Time H&P Reviewed: 09:12 Conscious Sedation Pre-Proced ASA Score 2 �For ASA 3 and 4: Consider anesthesia and medical clearance.� Also, for patients with a history of failed moderate sedation consider anesthesia.� Airway Lungs Heart ASA score ASA 1: a normal healthy patient ASA 2: a patient with a mild systemic disease (mid diabetes, controlled hypertension, obesity ASA 3: a patient with a severe systemic disease that limits activity (angina, COPD, prior Myocardial infarction) ASA 4: a patient with an incapacitating disease that is a constant threat to life (CHF, renal failure) ASA 5: a moribund patient not expected to survive 24 hrs. (ruptured aneurysm) ASA 6: a declared brain- patient whose organs are being harvested. For emergent operations, add the letter E after the classification Mallampati Classification Grade 2 Sedation Plan Analgesia, Amnesia, Plan communicated to team members, Discussed options with patient/fam, Discussed risks with patient/fam The patient is an appropriate candidate to undergo the planned procedure, sedation, and anesthesia. The patient immediately re-assessed prior to indication. ORA ROGERS MD Mar 25, 2021 09:12
[2021-03-25] MEDS ORDERED: proPOfol 200 MG/20 ML (DIPRIVAN) VIAL IV ONE (09:40)
[2021-03-25] MEDS ORDERED: OMEP20TA7 PO (10:05)
--- NOTE | 2021-03-25 10:07 | Anesthesia-General Post-Op ---
MAC Patient Condition Mental Status/LOC: Same as Preop Cardiovascular: Satisfactory Nausea/Vomiting: Absent Respiratory: Satisfactory Pain: Controlled Complications: Absent Post Op Complications Complications None Follow Up Care/Instructions Patient Instructions None needed. Anesthesiology Discharge Order Discharge Order Patient is doing well, no complaints, stable vital signs, no apparent adverse anesthesia problems. No complications reported per nursing. HODAN CAAL CRNA Mar 25, 2021 10:07
[2021-03-25 10:08] VITALS: BP 125/72
[2021-03-25 10:11] VITALS: BP 128/75
[2021-03-25 10:14] VITALS: BP 128/75
[2021-03-25 10:52] VITALS: BP 128/75
--- NOTE | 2021-03-25 14:39 | OPERATIVE REPORT ---
DATE OF SERVICE: EGD SUMMARY PRIMARY CARE PROVIDER: Ora Rogers MD. INDICATION FOR THE PROCEDURE: Dysphagia. DESCRIPTION OF PROCEDURE: The patient was placed in the left lateral decubitus position. The endoscope was inserted in the oral cavity and under direct visualization, the esophagus was intubated. The endoscope was passed down the esophagus through the stomach and the second portion of the duodenum. A careful inspection was made as the endoscope was withdrawn. FINDINGS: The posterior pharynx, epiglottis, arytenoid aperture, and true and false vocal folds were unremarkable on visual inspection. Proximal and mid esophagus was unremarkable. There was circumferential ulceration, which resulted in about a 1.5 cm area of stricturing in the distal esophagus, essentially the GE junction. There was roughly 2 to 3 cm size hiatal hernia present. No nodularity was noted. No obvious evidence to suggest Vail's change was noted. The cardia and fundus of the stomach was unremarkable. There were some patchy areas of antral erythema noted without evidence for ulceration. The pylorus, pyloric channel, duodenal bulb, and second portion of the duodenum were unremarkable. LA grade D erosive esophagitis was present with stricture formation. After obtaining biopsies, dilatation was performed with pneumatic dilator to 20 mm size at 6 atmospheres of pressure. Minimal amount of usual oozing post procedure and no significant bleeding. ASSESSMENT AND PLAN: LA grade 4 erosive esophagitis as noted above. We will initiate omeprazole 20 mg q.a.m. daily with followup in several months. Await histopathology report before determining whether or not there will be recommendations for future surveillance EGD. Job ID: [id number] DocumentID: [id number] Dictated Date: 03/25/2021 10:08:48 Letterset Press Set Up Operator Date: 03/25/2021 14:37:58 Dictated By: ORA ROGERS MD [facility]
== END 2021-03-25 10:52 | disposition home or self-care (01) ==
LOC: ENDO 08:17
PROVIDERS: ATTEND Internal Medicine
DX: K22.10 Ulcer of esophagus without bleeding (principal); K44.9 Diaphragmatic hernia without obstruction or gangrene; K22.2 Esophageal obstruction; K21.00 Gastro-esophageal reflux disease with esophagitis, without bleeding; I10 Essential (primary) hypertension; Z79.899 Other long term (current) drug therapy; Z87.891 Personal history of nicotine dependence
CPT/HCPCS: 88305; 88312

== ENCOUNTER → 2021-08-08 | Outpatient (CLI) | payer OTHER ==
[~2021-08-08] MED LIST changes: +OMEP20TA7 PO
--- NOTE | 2021-08-08 12:30 | Diagnostic Imaging Report ---
INDICATION: Routine screening Comparison is made with prior mammogram from 01/24/2013 and 07/07/2011. 2-D and 3-D bilateral screening mammography was performed with CAD. Scattered fibroglandular densities are identified bilaterally. A benign nodular densities in both breasts appears stable. No spiculated mass or malignant-appearing microcalcifications are seen. Axillae are unremarkable. IMPRESSION: No mammographic features suspicious for malignancy are identified. ACR BI-RADS Category 2: Benign findings. Result letter will be mailed to the patient. Note: At least 10% of breast cancer is not imaged by mammography. BI-RADS Category 2 Dictated by: Dictated on workstation # [id number]
== END ==
LOC: RAD 09:00
PROVIDERS: ATTEND Nurse Practitioner Family
DX: Z12.31 Encounter for screening mammogram for malignant neoplasm of breast (principal)
CPT/HCPCS: 77063; 77067

== ENCOUNTER 2022-05-10 12:08 | Outpatient (CLI) | payer OTHER ==
[~2022-05-10] VITALS: Ht 154.9 cm; Wt 69.4 kg
[~2022-05-10 12:08] MED LIST changes: -BALO40TA PO; +BALO40TA4 PO; +BUPR-105 PO; -BUPR150T14 PO; +OMEP20TA56 PO; -OMEP20TA7 PO
[2022-05-10] MEDS ORDERED: DIAZ5TAB49 PO (12:53)
[2022-05-10] MEDS ORDERED: NF-VITD400 PO (12:53)
[2022-05-10] MEDS ORDERED: IRBE1TAB41 PO (12:53)
[2022-05-10] MEDS ORDERED: FERR-84 PO (12:53)
[2022-05-10] MEDS ORDERED: MECL-149 PO (12:53)
[2022-05-10] MEDS ORDERED: HYDR12.56 PO (12:53)
[2022-05-10] MEDS ORDERED: ROSU20TA32 PO (12:53)
== END 2022-05-10 12:59 | disposition home or self-care (01) ==
LOC: PREOP 12:08
PROVIDERS: ATTEND Internal Medicine
DX: Z01.818 Encounter for other preprocedural examination (principal)

== ENCOUNTER 2022-05-19 10:14 | Day surgery (SDC) | payer MEDICARE, OTHER ==
--- NOTE | 2022-05-10 16:25 | HISTORY AND PHYSICAL ---
PANENDOSCOPY ESOPHAGOGASTRODUODENOSCOPY HISTORY OF PRESENT ILLNESS: The patient is a 66-year-old white female who presented for screening colonoscopy. She has not previously undergone a colonoscopy. She had been noting odynophagia despite daily proton pump inhibitor therapy with reflux sounding symptoms and some occasional coughing and choking at night. She had a past history of LA grade D erosive esophagitis and had undergone EGD evaluation in 03/2021. She has done well for the last several months, taking proton pump inhibitor therapy in the form of omeprazole 20 mg each morning. She has added Pepcid twice a day to this and has had some improvement in symptoms over the past couple of weeks. She had been having intermittent dark stools that she attributed to Pepto-Bismol, but CBC was done revealing a significant drop in her hemoglobin to 9.8 noted on the 11 of this month. This compared to a level of 12.8 in 08/2020. Her MCV was low. Iron studies confirmed iron deficiency anemia. She has had no vaginal bleeding and denies bright red blood per rectum. PHYSICAL EXAMINATION: GENERAL: Reveals a slightly pale white female in no acute distress. Weight was stable at 153. VITAL SIGNS: Blood pressure 130/80. HEENT: Unremarkable. Sclerae nonicteric. CHEST: Clear. CARDIOVASCULAR: Reveals a regular rate and rhythm without murmur, S3, or S4. ABDOMEN: Reveals mild epigastric discomfort to palpation without rebound or guarding. No mass or organomegaly noted. EXTREMITIES: Reveal no cyanosis, clubbing or edema. ASSESSMENT AND PLAN: The patient is undergoing a screening colonoscopy at her first as well as diagnostic EGD due to a history of erosive esophagitis and current iron deficiency anemia. For now, she will continue 20 mg of omeprazole in the morning and b.i.d. Pepcid avoiding aspirin and nonsteroidal medication. Job ID: [id number] DocumentID: [id number] Dictated Date: 05/10/2022 15:24:07 Technician Terminal And Repeater Date: 05/10/2022 15:37:00 Dictated By: ORA ROGERS MD
[~2022-05-19] VITALS: Ht 154.9 cm; Wt 69.4 kg
[~2022-05-19 10:14] MED LIST changes: +DIAZ5TAB49 PO; +FERR-84 PO; +HYDR12.56 PO; +IRBE1TAB41 PO; +MECL-149 PO; +NF-VITD400 PO; +ROSU20TA32 PO
[2022-05-19] MEDS ORDERED: LACTATED RINGERS 1,000 ML IV STA (10:26)
[2022-05-19] MEDS ORDERED: HURRICAINE EXT TUBE (BENZOCAINE) XX PRN (10:30)
[2022-05-19 10:40] VITALS: BP 133/81
--- NOTE | 2022-05-19 12:06 | Pre-Op Note & Conscious Sedat ---
Pre-Operative Progress Note Date H&P Reviewed: May 19, 2022 Time H&P Reviewed: 11:30 History & Physical: H&P Reviewed, Patient Examed, No changes noted Pre-Op Diagnosis: screening and dysphagia Conscious Sedation Pre-Proced ASA Score 2 For ASA 3 and 4: Consider anesthesia and medical clearance. Also, for patients with a history of failed moderate sedation consider anesthesia. Airway Lungs Heart ASA score ASA 1: a normal healthy patient ASA 2: a patient with a mild systemic disease (mid diabetes, controlled hypertension, obesity ASA 3: a patient with a severe systemic disease that limits activity (angina, COPD, prior Myocardial infarction) ASA 4: a patient with an incapacitating disease that is a constant threat to life (CHF, renal failure) ASA 5: a moribund patient not expected to survive 24 hrs. (ruptured aneurysm) ASA 6: a declared brain- patient whose organs are being harvested. For emergent operations, add the letter E after the classification Mallampati Classification Grade 2 Sedation Plan Analgesia, Amnesia, Plan communicated to team members, Discussed options with patient/fam, Discussed risks with patient/fam The patient is an appropriate candidate to undergo the planned procedure, sedation, and anesthesia. The patient immediately re-assessed prior to indication. ORA ROGERS MD May 19, 2022 12:06
[2022-05-19] MEDS ORDERED: PROPOFOL INJECTION 50 ML IV ONE (12:07)
[2022-05-19 12:45] VITALS: BP 103/58
[2022-05-19 12:50] VITALS: BP 125/65
--- NOTE | 2022-05-19 13:04 | Progress Note-Post Operative ---
Post-Procedure Note Physician (s)/Frame Hand (s) Physician ORA ROGERS MD Pre-Procedure Diagnosis Pre-Procedure Diagnosis: screening and dysphagia Post-Procedure Diagnosis Post-operative diagnosis: The patient was placed in the left lateral decubitus position. The endoscope was inserted into the oral cavity and under direct visitation advanced to the esophagus. This was passed down the esophagus stomach and second portion of the duodenum. A careful inspection was made as the endoscope was withdrawn. Findings the posterior pharynx epiglottis true and false vocal folds and arytenoid aperture were unremarkable. The proximal mid and distal esophagus was unremarkable. The Z-line was distinct there is evidence for 1 to 2 cm hiatal hernia present with no evidence for erosive esophagitis. Biopsies obtained from the GE junction and submitted for histopathology. The cardia antrum and fundus pylorus pyloric channel duodenal bulb and second portion of the duodenum were unremarkable with normal villous architecture. Assessment: Small hiatal hernia is present without evidence for erosive esophagitis. This is otherwise unremarkable EGD. A biopsy was obtained from the GE junction and submitted for histopathology. Colonoscopy: Prior to undergoing colonoscopy digital rectal evaluation was performed. Anal sphincter tone was normal and the perianal reflexes intact. No abnormalities noted on digital inspection of the anal canal or distal rectal vault. The colonoscope was then inserted into the rectum and under direct physician advanced the cecum. The cecum was identified by identification of the ileocecal valve and cecal strap. Photographic dictation obtained. Quality prep was good. Findings: Starting the rectosigmoid junction and involving most of the sigmoid colon for patchy areas of erythema with some small areas of submucosal hemorrhage no evidence for ulceration was noted. There appeared to be relative rectal sparing biopsies were obtained from the rectum distal and proximal sigmoid colon. Several small sigmoid diverticulum were present. No evidence for neoplasia was identified. The descending colon splenic flexure transverse colon hepatic flexure ascending colon and cecum and distal terminal ileum were unremarkable the visual inspection with no evidence for colitis to gross inspection in these areas. A/P 1. Patchy areas of colonic inflammation were noted beginning at the rectosigmoid junction extending through majority of the sigmoid colon were present biopsies were obtained from the rectum proximal and distal sigmoid colon and submitted for histopathology favor an infectious process but cannot rule out the possibility of ulcerative colitis. Mild diverticular disease confined to the sigmoid colon was present without evidence for acute diverticulitis. ORA ROGERS MD May 19, 2022 13:04
[2022-05-19 13:13] VITALS: BP 125/65
--- NOTE | 2022-05-19 14:11 | Anesthesia-General Post-Op ---
MAC Patient Condition Mental Status/LOC: Same as Preop Cardiovascular: Satisfactory Nausea/Vomiting: Absent Respiratory: Satisfactory Pain: Controlled Complications: Absent Post Op Complications Complications None Follow Up Care/Instructions Patient Instructions None needed. Anesthesiology Discharge Order Discharge Order Patient was doing well after the procedure with no complaints, stable vital signs, no apparent adverse anesthesia problems. No complications reported per nursing. ANDER ROLDAN DO May 19, 2022 14:11
== END 2022-05-19 13:24 | disposition home or self-care (01) ==
LOC: ENDO 10:14
PROVIDERS: ATTEND Internal Medicine
DX: K57.30 Diverticulosis of large intestine without perforation or abscess without bleeding (principal); K52.9 Noninfective gastroenteritis and colitis, unspecified; D50.9 Iron deficiency anemia, unspecified; K44.9 Diaphragmatic hernia without obstruction or gangrene; Z87.891 Personal history of nicotine dependence
CPT/HCPCS: 88305

== ENCOUNTER → 2022-09-13 | Outpatient (CLI) | payer MEDICARE, OTHER ==
--- NOTE | 2022-09-13 20:17 | Diagnostic Imaging Report ---
INDICATION: Routine screening. COMPARISON: Prior mammograms from 08/08/2021 and 01/24/2013. EXAMINATION: 2D and 3D bilateral screening mammography was performed with CAD. FINDINGS: Scattered fibroglandular densities are identified, bilaterally. Nodular density in left breast is stable. No new mass or malignant-appearing microcalcifications are seen. Axillae are unremarkable. IMPRESSION: No mammographic feature suspicious for malignancy is identified. ACR BI-RADS Category 2: Benign findings. Result letter will be mailed to the patient. Note: At least 10% of breast cancer is not imaged by mammography. Dictated by: Dictated on workstation # [id number]
== END ==
LOC: RAD 09:33
PROVIDERS: ATTEND Nurse Practitioner Family
DX: Z12.31 Encounter for screening mammogram for malignant neoplasm of breast (principal)
CPT/HCPCS: 77063; 77067

== ENCOUNTER 2022-10-06 08:00 | Outpatient (RCR) | payer MEDICARE, OTHER | END 2022-10-13 | disposition home or self-care (01) | PROVIDERS: ATTEND Nurse Practitioner Family | DX: M54.2 Cervicalgia (principal); I10 Essential (primary) hypertension; H81.09 Meniere's disease, unspecified ear ==

== ENCOUNTER → 2023-01-22 | Outpatient (CLI) | payer MEDICARE, OTHER ==
[~2023-01-22] MED LIST changes: -MECL-149 PO; +MECL-291 PO; -ROSU20TA32 PO; +ROSU20TA73 PO
== END ==
LOC: CARD 14:50
PROVIDERS: ATTEND Nurse Practitioner Family
DX: I10 Essential (primary) hypertension (principal); R00.2 Palpitations
CPT/HCPCS: 93005